=== PATIENT | female | born 1945 | race Caucasian/White ===

== ENCOUNTER 2021-07-28 21:49 | Inpatient (IN) | payer OTHER ==
[~2021-07-28] VITALS: Ht 162.6 cm; Wt 113.4 kg
--- NOTE | ~2021-07-28 | EMS ---
[address] [address] EMS Patient Care Report Name: HOMA WEST Room: PRE M.R.#: [id number] Admission: Attend Phys: Discharge: Date of : 45 Report #: [id number] THIS REPORT FOR: //name// Report Transmitted: 07/28/2021 22:34 EMS Care [place] Incident [id number] @ 07/28/2021 21:06 Incident Location [address] [place] [address] Patient HOMA WEST Female, 75 Years 1945 Patient Address [address] [place] [address] Patient History Hypertension (HTN),Hypothyroidism, unspecified,Endocrine Condition - Other,Malignant neoplasm of breast of unspecified site,Malignant neoplasm of unspecified part of unspecified bronchus or lung, Patient Allergies No known allergies, Patient Medications Levothroid, Metformin, NovoLog, Hydralazine, Verapamil, Singulair, Gabapentin, Chief Complaint Chest Pain Disposition Transported No Lights/[place] Dispatch Reason Chest Pain (Non-Traumatic) Transported To [facility] Narrative [facility] WAS DISPATCHED TO A FEMALE WITH CHEST PAIN. ON scene THE PATIENT WAS SITTING IN A RECLINER IN THE HOME. THE PATIENT WAS BEING assessed BY [address] [place] [address] EMS Patient Care Report Name: HOMA WEST Room: [facility]#: [id number] Admission: Attend Phys: Discharge: Date of : 45 Report #: [id number] FIGHTERS. THE PATIENT WAS COMPLAINING OF CHEST PAIN. THE PATIENT STATED THAT THE CHEST PAIN HAS happened ABOUT 3-4 TIMES IN THE LAST MONTH. PATIENT STATED THAT USUALLY SHE IS WALKING AROUND AND overexerting herself, HOWEVER THIS TIME THE PATIENT WAS JUST SITTING AND WATCHING HER TV. THE FIREFIGHTERS STATE THAT THE PATIENT DID HAVE A SATURATION OF 92% ON ROOM AIR. PATIENT STATED THAT SHE FEELS ALOT BETTER AFTER THE OXYGEN WAS PUT ON HER. A 12-LEAD WAS OBTAINED ALONG WITH OTHER BASE VITALS. ONCE THE PATIENT WAS DEEMED STABLE SHE WAS HELPED TO STAND, A COAT WAS OUT ON HER. THE patient PUT A PHONE IN HER POCKET AND PURSE WAS obtained. THE PATIENT STATED THAT SHE NORMALLY GO[facility] TO [facility], PATIENT WAS TOLD THAT [facility] WAS BUSY, PATIENT WAS given [facility], PATIENT CHOSE [facility]. THE PATIENT WAS WALKED OUT OF THE HOUSE AND DOWN TO THE COT. ONCE ON THE COT THE PATIENT WAS BUCKLED IN AND TAKEN TO THE AMBULANCE. IN THE AMBULANCE PATIENT VITALS WERE OBTAINED AGAIN, PATIENT HAD GOTTEN WINDED FROM WALKING, PATIENT WAS COACHED TO SLOW HER BREATHING DOWN, IV accesses ATTEMPTED AND A BLOOD GLUCOSE analyzed. LUNG sounds WERE LISTENED TO. PATIENT MEDICAL AND DEMOGRAPHIC INFORMATION WAS OBTAINED. THE PATIENT WAS ALERT AND ORIENTED. PATIENT WAS TRANSPORTED IN position OF comfort. THERE WAS NO CHANGE NOTED IN PATIENT CONDITION. PATIENT WAS SPEAKING IN FULL SENTENCES EXPLAINING HOW THIS STARTED WHILE SHE WAS WATCHING [employer]rex Gear. PATIENT WAS ABLE TO SIGN FOR HERSELF. AT THE HOSPITAL PATIENT WAS TAKEN TO ROOM 6, A NURSE WAS GIVEN patient INFORMATION. patient WAS ALLOWED TO STAND AND SIT FROM THE COT TO THE BED. THE NURSE WAS GIVEN PATIENT REPORT. NURSE SIGNED FOR PATIENT CARE. A FACESHEET WAS OBTAINED AND EMS DEPARTED THE SCENE. --END-- Initial Vitals @21:18Pain: 12/09, @21:23SpO2: 99, @21:24SpO2: 100, @21:29SpO2: 99, @21:34SpO2: 99, @21:38SpO2: 97, @21:39SpO2: 98, @21:44SpO2: 97, @CROSSCUTTER ROLLED GLASS @21:38P: 98,R: 18,BP: 179/82, @PTAP: 100,R: 20,BP: 189/90, @21:34EiAS1: 32, @21:35GnEM8: 35, @21:47JqJR0: 32, @21:74WhIX2: 30, @21:63DsKX8: 34, @21:62CoTE8: 32, @21:39WgUN3: 36, @21:38GCS: 15, @PTAGCS: 15, @21:42 [place] [address] EMS Patient Care Report Name: HOMA WEST Room: [facility]..#: [id number] Admission: Attend Phys: Discharge: Date of : 45 Report #: [id number] @21:31Glucose: 185, Assessments @21:11MENTAL:SKIN:HEENT:LUNG SOUNDS:ABDOMEN:PELVIS//GI:EXTREMITIES:PULSE:NEURO: Impression Angina pectoris Procedures @PTAOxygen Complications: , @21:30 IV Therapy - cc () Site: Antecubital-Left Response: UnchangedFailed @21:21 IV Therapy - cc () Site: Hand-Left Response: UnchangedFailed @21:23 ETCO2 digital capnography Response: UnchangedSucceeded @21:24 ETCO2 digital capnography Response: UnchangedSucceeded @21:29 ETCO2 digital capnography Response: UnchangedSucceeded @21:34 ETCO2 digital capnography Response: UnchangedSucceeded @21:38 ETCO2 digital capnography Response: UnchangedSucceeded @21:39 ETCO2 digital capnography Response: UnchangedSucceeded @21:44 ETCO2 digital capnography Response: UnchangedSucceeded @ZLN80-Dvwe ECG Response: UnchangedSucceeded Timeline CROSSCUTTER ROLLED GLASS,Oxygen Complications: ,, CROSSCUTTER ROLLED GLASS,12-Lead ECG,Response: UnchangedSucceeded, CROSSCUTTER ROLLED GLASS,BP: / M,PULSE: ,RR: R,SPO2: Ox,ETCO2: ,BG: ,PAIN: ,GCS: , CROSSCUTTER ROLLED GLASS,BP: 189/90 M,PULSE: 100,RR: 20 R,SPO2: Ox,ETCO2: ,BG: ,PAIN: ,GCS: , CROSSCUTTER ROLLED GLASS,BP: / M,PULSE: ,RR: R,SPO2: Ox,ETCO2: ,BG: ,PAIN: ,GCS: 15, 20:30,Call Received 21:03,Dispatch Notified 21:03,Psap Call 21:06,Dispatched 21:06,En Route 21:10,On Scene 21:11,At Patient 21:18,BP: / M,PULSE: ,RR: R,SPO2: Ox,ETCO2: ,BG: ,PAIN: 3,GCS: , 21:21,IV Therapy - cc Site: Hand-Left,Response: UnchangedFailed, 21:23,ETCO2 digital capnography,Response: UnchangedSucceeded, 21:23,BP: / M,PULSE: ,RR: R,SPO2: 99 Ox,ETCO2: ,BG: ,PAIN: ,GCS: , 21:23,BP: / M,PULSE: ,RR: R,SPO2: Ox,ETCO2: 32 ,BG: ,PAIN: ,GCS: , 21:24,ETCO2 digital capnography,Response: UnchangedSucceeded, 21:24,BP: / M,PULSE: ,RR: R,SPO2: 100 Ox,ETCO2: ,BG: ,PAIN: ,GCS: , 21:24,BP: / M,PULSE: ,RR: R,SPO2: Ox,ETCO2: 35 ,BG: ,PAIN: ,GCS: , 21:29,ETCO2 digital capnography,Response: UnchangedSucceeded, 21:29,BP: / M,PULSE: ,RR: R,SPO2: 99 Ox,ETCO2: ,BG: ,PAIN: ,GCS: , [place] [address] EMS Patient Care Report Name: JENNAHOMA Room: [facility].R.#: [id number] Admission: Attend Phys: Discharge: Date of : 45 Report #: [id number] 21:29,BP: / M,PULSE: ,RR: R,SPO2: Ox,ETCO2: 32 ,BG: ,PAIN: ,GCS: , 21:30,IV Therapy - cc Site: Antecubital-Left,Response: UnchangedFailed, 21:31,BP: / M,PULSE: ,RR: R,SPO2: Ox,ETCO2: ,B,PAIN: ,GCS: , 21:31,Depart Scene 21:34,ETCO2 digital capnography,Response: UnchangedSucceeded, 21:34,BP: / M,PULSE: ,RR: R,SPO2: 99 Ox,ETCO2: ,BG: ,PAIN: ,GCS: , 21:34,BP: / M,PULSE: ,RR: R,SPO2: Ox,ETCO2: 30 ,BG: ,PAIN: ,GCS: , 21:38,ETCO2 digital capnography,Response: UnchangedSucceeded, 21:38,BP: / M,PULSE: ,RR: R,SPO2: 97 Ox,ETCO2: ,BG: ,PAIN: ,GCS: , 21:38,BP: 179/82 M,PULSE: 98,RR: 18 R,SPO2: Ox,ETCO2: ,BG: ,PAIN: ,GCS: , 21:38,BP: / M,PULSE: ,RR: R,SPO2: Ox,ETCO2: 34 ,BG: ,PAIN: ,GCS: , 21:38,BP: / M,PULSE: ,RR: R,SPO2: Ox,ETCO2: ,BG: ,PAIN: ,GCS: 15, 21:39,ETCO2 digital capnography,Response: UnchangedSucceeded, 21:39,BP: / M,PULSE: ,RR: R,SPO2: 98 Ox,ETCO2: ,BG: ,PAIN: ,GCS: , 21:39,BP: / M,PULSE: ,RR: R,SPO2: Ox,ETCO2: 32 ,BG: ,PAIN: ,GCS: , 21:42,BP: / M,PULSE: ,RR: R,SPO2: Ox,ETCO2: ,BG: ,PAIN: ,GCS: , 21:44,ETCO2 digital capnography,Response: UnchangedSucceeded, 21:44,BP: / M,PULSE: ,RR: R,SPO2: 97 Ox,ETCO2: ,BG: ,PAIN: ,GCS: , 21:44,BP: / M,PULSE: ,RR: R,SPO2: Ox,ETCO2: 36 ,BG: ,PAIN: ,GCS: , 21:45,At Destination 22:00,Call Closed Disclaimer v1.1 Copyright 2020 [employer] This EMS Care Summary contains data elements from the applicable legal record (which may be displayed differently). It is designed to provide pertinent information for the following purposes: continuity of care, clinical quality, and state data reporting. The complete legal record is available to ED staff and administrators of the receiving hospital in ES's Patient Tracker. All data is provided "as is."
--- NOTE | ~2021-07-28 | EKG ---
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
[~2021-07-28 21:49] MED LIST: ASPIRIN325 PO; BUMETANIDE 1 MG1 M1 PO; COZAAR100 MG PO; GLUMETZA1000 PO; K-DUR 20 MEQ T20 MEQ PO; LANTUS SQ; LEVOTHROID50 MCG PO; NOVOLOG100 UNIT/1 SQ; PRAVACHOL40 MG PO; TOPROL XL100 MG PO; VERAPAMIL ER240 MG PO; ZOFRAN4 MG
[2021-07-28 22:03] VITALS: BP 156/63
[2021-07-28] MEDS ORDERED: TOPROL XL25 MG PO (22:08)
[2021-07-28] MEDS ORDERED: SINGULAIR4 M1 PO (22:08)
[2021-07-28] MEDS ORDERED: TRESIBA100 UNIT/1 (22:09)
[2021-07-28] MEDS ORDERED: IPRAT-ALBUT 0.5-3 ML (22:09)
[2021-07-28] MEDS ORDERED: HYDRALAZINE 2525 MG PO (22:10)
[2021-07-28 22:38] LABS: ABSOLUTE EOSINOPHILS 0.1 thou/uL (0.0-0.7); ABSOLUTE LYMPHOCYTES 1.2 thou/uL (0.8-5.3); ABSOLUTE MONOCYTES 0.8 thou/uL (0.0-1.2); ABSOLUTE NEUTROPHILS 5.2 thou/uL (1.6-8.1); BASOPHILS 0.7 %; EOSINOPHILS 1.4 %; HEMATOCRIT 39.1 % (37.0-47.0); HEMOGLOBIN 12.7 gm/dL (12.0-15.0); LYMPHOCYTES 16.2 %; MCH 28.8 pg (26.0-34.0); MCHC 32.6 g/dL (28.0-37.0); MCV 88.6 fL (80.0-100.0); MONOCYTES 10.8 %; MPV 7.1 fl. (7.2-11.1); NUCLEATED RBCS 0 /100WBC; PLATELET COUNT* 231 thou/uL (150-400); POLYS 70.9 %; RBC 4.41 mil/uL (4.20-5.00); RDW-CV 15.3 % (10.5-14.5); WBC 7.3 thou/uL (4.0-11.0)
[2021-07-28 22:45] LABS: APTT 24.8 Seconds (25.0-31.3); CALCIUM 9.2 mg/dL (8.5-10.1); CREATININE 1.3 mg/dL (0.6-1.3); POTASSIUM 4.3 mmol/L (3.5-5.1); PROTIME 10.3 Seconds (9.20-11.50)
[2021-07-28 22:53] LABS: ALBUMIN 3.1 g/dL (3.4-5.0); TOTAL BILIRUBIN 0.4 mg/dL (<0.1-1.0); TOTAL PROTEIN 7.7 g/dL (6.4-8.2)
[2021-07-29 05:04] VITALS: BP 155/65
[2021-07-29 09:00] VITALS: BP 183/93
[2021-07-29 09:31] LABS: CHOLESTEROL 134 mg/dL (<200); HDL CHOLESTEROL 61 mg/dL (>40); LDL CHOLESTEROL 44 mg/dL (<100); TC:HDL 2.2 Ratio (Not establshd); TRIGLYCERIDE 146 mg/dL (<150); VLDL 29 mg/dL (<40)
[2021-07-29 09:32] LABS: SERUM ASSESSMENT Clear
[2021-07-29 13:00] VITALS: BP 148/91
--- NOTE | 2021-07-29 14:15 | EKG ---
[place] [address] ELECTROCARDIOGRAM REPORT Name: HOMA WEST Room: [place] [address] ADM IN .R.#: [id number] Admission: 07/29/21 Attend Phys: Gina Blancas MD Discharge: Date of : 45 Date of Service: 07/28/21 215 Report #: [id number] THIS REPORT FOR: //name// [facility] ED Test Date: 2021-07-28 Test Time: 21:54:52 Pat Name: HOMA WEST Department: Room: [facility] Gender: F Gig Tender: MR : 1945 Requested By: Alicia White Order Number: [id number] MD: Scott Ruiz Measurements Intervals [place] Rate: 102 P: AK: QRS: -41 QRSD: 88 T: 47 QT: 357 QTc: 466 Interpretive Statements sinus tachycardia Left anterior fascicular block Left ventricular hypertrophy Anterior Q waves, possibly due to LVH No previous ECG available for comparison Electronically Signed On 07-29-2021 14:15:29 CDT by Scott Ruiz [email or web address] <ELECTRONICALLY SIGNED> By: Scott Ruiz MD, FACC 07/29/21 1415 53 53 Scott Ruiz MD, [facility] /EPI
--- NOTE | 2021-07-29 14:17 | EKG ---
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 : 1945 Requested By: Alicia White Order Number: [id number] MD: Scott Ruiz Measurements Intervals [place] Rate: 89 P: 19 AL: 165 QRS: -42 QRSD: 90 T: 65 QT: 372 QTc: 453 Interpretive Statements Sinus rhythm Left anterior fascicular block Consider anterior infarct Compared to ECG 07/28/2021 21:54:52 Atrial fibrillation no longer present Left ventricular hypertrophy no longer present Electronically Signed On 07-29-2021 14:17:16 CDT by Scott Ruiz [email or web address] <ELECTRONICALLY SIGNED> By: Scott Ruiz MD, FACC 07/29/21 1417 1 1 Scott Ruiz MD, FACC /EPI
--- NOTE | 2021-07-29 15:32 | 2DMMODE ---
[place] [address] 2 D/M-MODE ECHOCARDIOGRAM Name: HOMA WEST Room: [place] [address] ADM IN [facility]#: [id number] Admission: 07/29/21 Attend Phys: Gina Blancas MD Discharge: Date of : 45 Date of Service: 07/29/21 1532 Report #: [id number] THIS REPORT FOR: cc: Linh Zamorano MD, Pamela MD Liston, Michael J. MD [facility] ~ APPROVED REPORT Study performed: 07/29/2021 13:59:38 EXAM: Comprehensive 2D, Doppler, and color-flow Echocardiogram Patient Location: In-Patient Room #: er Status: routine BSA: 2.15 HR: 116 bpm BP: 148/91 mmHg Rhythm: NSR Other Information Study Quality: Adequate Indications Dyspnea 2D Dimensions IVSd: 12.49 (7-11mm) LVOT Diam: 20.84 (18-24mm) LVDd: 50.84 mm PWd: 12.56 (7-11mm) LVDs: 30.03 (25-40mm) Aortic Root: 31.35 mm Volumes Left Atrial Volume (Systole) LA ESV Index: 32.80 mL/m2 Aortic Valve AoV Peak Tam.: 1.41 m/s AO Peak Gr.: 7.97 mmHg LVOT Max P.00 mmHg AO Mean Gr.: 5.34 mmHg LVOT Mean P.64 mmHg LVOT Max V: 0.87 m/s AO V2 VTI: 22.64 cm LVOT Mean V: 0.60 m/s TORSTEN (VTI): 2.28 cm2 LVOT V1 VTI: 15.15 [place] [address] 2 D/M-MODE ECHOCARDIOGRAM Name: HOMA WEST Room: [place] [address] ADM IN .R.#: [id number] Admission: 07/29/21 Attend Phys: Gina Blancas MD Discharge: Date of : 45 Date of Service: 07/29/21 1532 Report #: [id number] Mitral Valve MV Mean Gr.: 4.79 mmHg E/A Ratio: 0.77 MV Decel. Time: 175.71 ms MV E Max Tam.: 0.95 m/s MV PHT: 50.96 ms MVA (PHT): 4.32 cm2 TDI E/Lateral E': 10.56 Lateral E' Tam.: 0.09 m/s Pulmonary Valve PV Peak Tam.: 1.13 m/s PV Peak Gr.: 5.11 mmHg Left Ventricle The left ventricle is normal size. There is akinesis of the apex and apical anterior wall. Mild concentric left ventricular hypertrophy. Left ventricular systolic function is preserved. LVEF is 55%. Grade I - abnormal relaxation pattern. Right Ventricle The right ventricle is normal size. The right ventricular systolic function is normal. Atria The left atrium size is normal. The right atrium size is normal. Aortic Valve Mild aortic valve sclerosis. No aortic regurgitation is present. There is no aortic valvular stenosis. Mitral Valve There is mitral annular calcification. There is no mitral valve regurgitation noted. No evidence of mitral valve stenosis. Tricuspid Valve The tricuspid valve is normal in structure. Trace tricuspid regurgitation. Unable to assess PA pressure. Pulmonic Valve The pulmonary valve is normal in structure. There is no pulmonic valvular regurgitation. Great Vessels The aortic root is normal in size. IVC [place] [address] 2 D/M-MODE ECHOCARDIOGRAM Name: HOMA WEST MARSHA Room: [address] IN [facility]#: [id number] Admission: 07/29/21 Attend Phys: Gina Blancas MD Discharge: Date of : 45 Date of Service: 07/29/21 1532 Report #: [id number] collapses >50% with inspiration. Pericardium There is no pericardial effusion. <Conclusion> The left ventricle is normal size. Mild concentric left ventricular hypertrophy. Left ventricular systolic function is preserved. LVEF is 55%. Grade I - abnormal relaxation pattern. There is akinesis of the apex and apical anterior wall. Mild aortic valve sclerosis. There is mitral annular calcification. Trace tricuspid regurgitation. <ELECTRONICALLY SIGNED> By: Bradley Salvador MD, FACC 07/29/211531 31 31 Bradley Salvador MD, FACC /INF
[2021-07-29 16:45] VITALS: BP 162/92
[2021-07-29 16:55] VITALS: BP 165/78
[2021-07-29 21:20] VITALS: BP 163/115
[2021-07-30] VITALS (12 sets, daily range): BP systolic 115–167; BP diastolic 55–81
[2021-07-30 02:52] LABS: ABSOLUTE MONOCYTES 1.1 thou/uL (0.0-1.2); ABSOLUTE NEUTROPHILS 5.9 thou/uL (1.6-8.1); BASOPHILS 0.5 %; EOSINOPHILS 0.3 %; HEMATOCRIT 41.6 % (37.0-47.0); HEMOGLOBIN 13.7 gm/dL (12.0-15.0); LYMPHOCYTES 12.9 %; MCV 87.8 fL (80.0-100.0); MONOCYTES 13.8 %; MPV 7.4 fl. (7.2-11.1); NUCLEATED RBCS 0 /100WBC; PLATELET COUNT* 252 thou/uL (150-400); POLYS 72.5 %; RBC 4.74 mil/uL (4.20-5.00); RDW-CV 15.4 % (10.5-14.5); WBC 8.1 thou/uL (4.0-11.0)
[2021-07-30 03:23] LABS: ALBUMIN 3.4 g/dL (3.4-5.0); CALCIUM 9.5 mg/dL (8.5-10.1); CREATININE 1.3 mg/dL (0.6-1.3); MAGNESIUM 1.5 mg/dL (1.8-2.4); PHOSPHORUS* 3.7 mg/dL (2.5-4.9); POTASSIUM 4.4 mmol/L (3.5-5.1); TOTAL BILIRUBIN 0.8 mg/dL (<0.1-1.0); TOTAL PROTEIN 7.7 g/dL (6.4-8.2)
--- NOTE | 2021-07-30 14:46 | EKG ---
[place] [address] ELECTROCARDIOGRAM REPORT Name: HOMA WEST Room: [address] ADM IN M.R.#: [id number] Admission: 07/29/21 Attend Phys: Gina Blancas MD Discharge: Date of : 45 Date of Service: 07/30/21 1258 Report #: [id number] THIS REPORT FOR: //name// [facility] Test Date: 2021-07-30 Test Time: 12:58:40 Pat Name: HOMA WEST Department: Room: [address] Gender: F Data Control Assistant: : 1945 Requested By: Scott Ruiz Order Number: [id number] MD: Scott Ruiz Measurements Intervals [place] Rate: 98 P: 54 WV: 189 QRS: -46 QRSD: 91 T: 68 QT: 360 QTc: 460 Interpretive Statements Sinus rhythm Left anterior fascicular block Abnormal R-wave progression, late transition Compared to ECG 07/29/2021 01:02:19 no change Electronically Signed On 07-30-2021 14:46:02 CDT by Scott Ruiz [email or web address] <ELECTRONICALLY SIGNED> By: Scott Ruiz MD, FAC 07/30/21 1446 1258 1258 Scott Ruiz MD, [facility] /EPI
--- NOTE | 2021-07-30 16:57 | CARD ---
[address] [address] CARDIAC CATH REPORT Name: HOMA WEST Room: [address] IN [facility]#: [id number] Admission: 07/29/21 Attend Phys: Gina Blancas MD Discharge: Date of : 45 Report #: [id number] THIS REPORT FOR: cc: Linh Zamorano MD, Pamela MD Blick, David R. MD [facility] ~ APPROVED REPORT Study performed: 07/30/2021 10:56:35 Patient Details Patient Status: In-Patient Room #: The patient is a 75 year-old female Event Personnel Scott Ruiz Tank Truck Driver, Bindu Astorga RN Rigger Up, Carlos Alberto Conklin RTR Scrub, Zena Butler RTR Monitor Procedures Performed Art Access - R radial artery Left Heart Cath w/or w/o Coronaries LHC SOLA Place w/wo Plasty Single LAD Hemostasis with Hemoband Indication Non-STEMI , Chest pain Risk Factors Hypercholesterolemia, Hypertension, Diabetes Admission/Lab Medications/Medications given during procedure Glycoprotein IllbIlla Inhibitors, Heparin Unfract., Plavix PO 600 mg, Nitroglycerin IC 200 mcg, Aggrastat IV 11 ml, Heparin IV 2000 units, Heparin IV 5000 units, Verapamil IA 2.5 mg, Nitroglycerin IA 200 mcg, Magnesium Sulfate IV 2 g, Lidocaine Subcut 4 ml, 0.9% Sodium Chloride IV 75 ml per hr, Oxygen Nasal cannula 2 l per min Procedure Narrative The patient was brought electively to the Cardiac Catheterization Laboratory and was prepped and draped in a sterile manner. The right wrist was infiltrated with 2% Lidocaine subcutaneous anesthesia. IV conscious sedation was used throughout procedure with appropriate monitoring and was performed in the presence [place] [address] CARDIAC CATH REPORT Name: HOMA WEST MARSHA Room: [address] IN [facility]#: [id number] Admission: 07/29/21 Attend Phys: Gina Blancas MD Discharge: Date of : 45 Report #: [id number] who was an independent trained observer other than the physician performing the procedure. A Slender Glidesheath sheath was inserted into the right radial artery. Coronary angiography was performed using coronary diagnostic catheters. The right coronary system was accessed and visualized with a Diagnostic 6F JR4 catheter. The left coronary system was accessed and visualized with a Diagnostic 6FJL4 catheter. The left ventricle was accessed and visualized with a Diagnostic PIGTAIL catheter. Left ventricular/Aortic Valve gradient assessed via catheter pullback. Left ventriculogram was performed in BOBO projection. Closure device was deployed with a 6 Fr Vasc-Band Reg 24cm. The patient tolerated the procedure well and there were no complications associated with the procedure. There was no hematoma. Intraoperative Conscious Sedation Sedation start time: 11:34 Case end Time: 12:34 Versed 1 mg Fluoro Time: 14.3 minutes Dose: DAP 346499 cGycm2 3163 mGy Contrast Type and Amount: Visipaque 240 mL Coronary Angiography The patient's coronary anatomy is right dominant. Diagnostic Cath Left Main Heavily calcified vessels with a proximal 30% stenosis LAD 95% proximal stenosis, and a 99% stenosis just after the takeoff of the second diagonal artery. There was competitve flow noted with miminal antegrade flow, and the mid and distal LAD filled retrograde by collaterals from the RCA. Circumflex 60% mid stenosis Right Coronary 30$ proximal stenosis and 40% mid stenosis with retrograde collaterals filling the distal and mid LAD. Left Ventriculography The left ventricular ejection fraction is estimated to be 30-35%. Left ventricular wall motion abnormalities are present. There is 1+ mitral insufficiency. severe hypokinesis noted of the mid and distal anteroapical wall. Hemodynamics The aortic pressure is 131/58 mmHg with a mean of [place] [address] CARDIAC CATH REPORT Name: HOMA WEST Room: [address] IN [facility]#: [id number] Admission: 07/29/21 Attend Phys: Gina Blancas MD Discharge: Date of : 45 Report #: [id number] ventricular pressure is 135/10 mmHg with a mean of mmHg. The left ventricular end diastolic pressure is 20 mmHg. There was no gradient across the aortic valve upon pullback. Pullback from the left ventricle to the aorta revealed no gradient across the aortic valve. PCI Technique Lesion Anticoagulation was achieved with Heparin. bolus of IV aggrastat given Percutaneous coronary intervention was performed on the proximal left anterior descending artery segment. The lesion stenosis prior to intervention was 95% with KALEB 3 flow. A 6FR XB LAD 3.0 100CM Guide Catheter was used to engage the LEFT ostium. A IG: BMW 190cm Interventional Guidewire was used to cross the lesion. BALLOON DILATION A Balloon catheter EUPHORA 2.5 X 15 was inserted and inflated up to 10atm for 13seconds. Repeat angiography revealed the following post-dilatation results: 80% stenosis. Additional Inflation: 11atm for 16seconds. Additional Inflation: 13atm for 16seconds. STENT DEPLOYMENT A drug-eluting stent Rich RX Stent 3.5X15mm was inserted and inflated up to 12atm for 18seconds. Repeat angiography revealed the following post-stent deployment results: 30% stenosis. POST STENT DEPLOYMENT BALLOON DILATION A Balloon catheter Euphora SC 4.0x12mm was inserted and inflated up to 18atm for 20seconds. Repeat angiography revealed the following post-dilatation results: 30% stenosis. Additional Inflation: 20atm for 8seconds. Unable to inset noncompliant balloon into the LAD despite using a BMW micah wire for support. Was able to insert a complaint balloon into the LAD. Difficulty appearred to be secondary to moderate coronary calcification. Final angiography reveals 30 % stenosis with KALEB 3 flow. PCI Technique Lesion 2 Percutaneous Coronary Intervention was performed on the mid left anterior descending artery segment. Percutaneous coronary intervention was performed on the mid left anterior descending artery segment. The lesion stenosis prior to intervention was 99% with KALEB 0 flow. A 6FR XB LAD 3.0 100CM Guide Catheter was used to engage the left ostium. A IG: BMW 190cm Interventional Guidewire was used [place] [address] CARDIAC CATH REPORT Name: HOMA WEST Room: [address] IN [facility]#: [id number] Admission: 07/29/21 Attend Phys: Gina Blancas MD Discharge: Date of : 45 Report #: [id number] Balloon Dilation A Balloon catheter EUPHORA 2.5 X 15 MM was inserted and inflated up to 14atm for 6seconds. Repeat angiography revealed the following post-dilatation results: 70% stenosis. Stent Deployment A drug-eluting stent Rich RX Stent 3.0X15mm was inserted and inflated up to 12atm for 19seconds. Repeat angiography revealed the following post-stent deployment results: 0% stenosis. Final angiography reveals 0 % stenosis with KALEB 3 flow. Conclusion 1. 95% proximal and 99% mid stenosis of a moderately calcified LAD with no significant antegrade flow and the mid and distal LAD filled retrograde by collaterals from the RCA. 2. LVEF 30-35% 3. successful placement of drug eluting stents in the proximal and mid LAD. Recommendations Cardiac Rehabilitation Referral Aggressive Medical Therapy Medications Administered Clopidogrel <ELECTRONICALLY SIGNED> By: Scott Ruiz MD, FACC 07/30/211655 55 55Scott Ruiz MD, FACC /INF
[2021-07-31] VITALS: BP 105/60
[2021-07-31 04:07] LABS: HEMATOCRIT 34.6 % (37.0-47.0); MCH 29.2 pg (26.0-34.0); MCHC 33.3 g/dL (28.0-37.0); MCV 87.7 fL (80.0-100.0); MPV 7.5 fl. (7.2-11.1); RBC 3.95 mil/uL (4.20-5.00); RDW-CV 15.4 % (10.5-14.5); WBC 6.3 thou/uL (4.0-11.0)
[2021-07-31 04:19] LABS: HEMOGLOBIN 11.5 gm/dL (12.0-15.0)
[2021-07-31 04:27] LABS: CALCIUM 8.3 mg/dL (8.5-10.1); CREATININE 1.2 mg/dL (0.6-1.3)
[2021-07-31 04:50] VITALS: BP 138/66
--- NOTE | 2021-07-31 09:48 | CON ---
[address] [address] CONSULTATION Name: [facility] Room: [address] IN .R.#: [id number] Admission: 07/29/21 Attend Phys: Gina Blancas MD Discharge: Date of : 45 Report #: [id number] THIS REPORT FOR: cc: Linh Zamorano MD,Linh Salvador,Bradley Mccray MD FAC ~ cc: Linh Zamorano MD, DATE OF CONSULTATION: 07/29/2021 INDICATION: Non-ST elevation myocardial infarction and acute heart failure. HISTORY OF PRESENT ILLNESS: The patient is a 75-year-old white female who presents to the Emergency Room with intermittent exertional chest discomfort and progressive shortness of breath. She reports a history of asthma. Cardiac risk factors include hypertension, type 2 diabetes mellitus, possible hyperlipidemia. The patient reports over the past several months having exertional central chest tightness and pressure consistent with angina. There is no specific radiation of the discomfort. Last evening, she had the onset of the shortness of breath and orthopnea. The patient reports intermittent chest heaviness that is dull since that time. She was started on a heparin drip here in the Emergency Room. Her high sensitivity troponins have ultimately elevated to the level of approximately 7000 consistent with a non-ST elevation myocardial infarction. EKG shows sinus rhythm without acute ST segment abnormality. Chest x-ray shows cardiomegaly and pulmonary vascular congestion. PAST MEDICAL HISTORY: 1. Type 2 diabetes mellitus. 2. Hypertension. 3. Asthma. 4. History of deep venous thrombosis remotely. 5. Stasis ulcers with chronic venous stasis of the lower extremities. 6. Thoracic aortic aneurysm. 7. Right mastectomy. ALLERGIES: TALWIN. CURRENT MEDICATIONS: Aspirin 325 mg daily, verapamil ER 1 tablet daily, metoprolol succinate 100 mg daily, pravastatin 40 mg at bedtime, metformin one tablet b.i.d., Synthroid 1 tablet daily, insulin 16 units subQ t.i.d., Toprol-XL 25 mg daily, Singulair 4 mg daily, Combivent inhaler p.r.n., Tresiba 100 units at bedtime, hydralazine 25 mg q.i.d. FAMILY HISTORY: [place] [address] CONSULTATION Name: HOMA WEST Room: [address]#: [id number] Admission: 07/29/21 Attend Phys: Gina Blancas MD Discharge: Date of : 45 Report #: [id number] SOCIAL HISTORY: The patient lives at home. She is not a smoker. She does not drink alcohol. REVIEW OF SYSTEMS: A 14-point review of systems as per HPI, otherwise unremarkable. PHYSICAL EXAMINATION: VITAL SIGNS: Blood pressure is 148/72, pulse is 102 and regular. GENERAL: This is a pleasant lady who appears to be in mild respiratory distress. HEENT: The patient is wearing glasses. O2 nasal cannula in place. Extraocular muscles intact. NECK: Examination of the neck reveals thick neck without obvious jugular venous distension. CHEST: Reveals diffuse rales throughout. CARDIAC: Reveals a distant S1, S2. I do not appreciate gallop or murmur. ABDOMEN: Reveals a protuberant abdomen that is soft and nontender. Bowel sounds present. EXTREMITIES: Show left lower extremity to be wrapped. Right lower extremity has mild edema. IMAGING: Chest x-ray shows cardiomegaly and pulmonary vascular congestion and acute heart failure, likely. LABORATORY DATA: Labs are reviewed. Electrolytes are within normal limits. BUN 24, creatinine 1.3, serum glucose 207. LFTs within normal limits. High sensitivity troponin peaked at 7291 thus far. NT-proBNP 749. CBC is within normal limits. IMPRESSION AND RECOMMENDATIONS: 1. Non-ST elevation myocardial infarction. The patient has been given an aspirin. She is on a heparin drip per Cardiology protocol. She is on O2 per nasal cannula. Her symptoms are improved at present with the exception of shortness of breath. Plan noninvasive evaluation either today or tomorrow. 2. Acute heart failure. The patient is in mild distress at this time. We will give IV bolus Lasix. We will reassess later today. Echocardiogram ordered and pending. 3. Hypertension. We will follow blood pressures with diuresis should improve her blood pressure. We will continue home [place] [address] CONSULTATION Name: HOMA WEST MARSHA Room: [address] [place] [facility]#: [id number] Admission: 07/29/21 Attend Phys: Gina Blancas MD Discharge: Date of : 45 Report #: [id number] 4. Possible dyslipidemia. A fasting lipid profile ordered and pending. 5. Diabetes per hospitalist. <ELECTRONICALLY SIGNED> By: Bradley Salvador MD, FACC 07/31/21 0948 [id number] Salvador MD, PIA /nt
[2021-07-31 11:30] VITALS: BP 139/65
[2021-07-31 16:00] VITALS: BP 130/66
[2021-07-31 19:57] VITALS: BP 125/52
[2021-08-01 00:27] VITALS: BP 119/58
[2021-08-01 04:18] VITALS: BP 121/53
[2021-08-01 08:00] VITALS: BP 123/55
[2021-08-01] MEDS ORDERED: TOPROL XL100 MG PO (09:16)
[2021-08-01] MEDS ORDERED: PLAVIX 75 MG TA75 M1 PO (09:16)
[2021-08-01 10:26] LABS: ABSOLUTE BASOPHILS 0.1 thou/uL (0.0-0.2); ABSOLUTE EOSINOPHILS 0.2 thou/uL (0.0-0.7); ABSOLUTE MONOCYTES 0.8 thou/uL (0.0-1.2); ABSOLUTE NEUTROPHILS 4.5 thou/uL (1.6-8.1); BASOPHILS 0.9 %; EOSINOPHILS 2.8 %; HEMOGLOBIN 11.5 gm/dL (12.0-15.0); LYMPHOCYTES 14.8 %; MCH 29.1 pg (26.0-34.0); MCHC 32.8 g/dL (28.0-37.0); MCV 88.7 fL (80.0-100.0); MONOCYTES 12.9 %; MPV 7.6 fl. (7.2-11.1); NUCLEATED RBCS 0 /100WBC; PLATELET COUNT* 216 thou/uL (150-400); POLYS 68.6 %; RBC 3.95 mil/uL (4.20-5.00); RDW-CV 15.4 % (10.5-14.5); WBC 6.5 thou/uL (4.0-11.0)
[2021-08-01 10:50] LABS: CALCIUM 8.4 mg/dL (8.5-10.1); CREATININE 1.3 mg/dL (0.6-1.3); POTASSIUM 4.5 mmol/L (3.5-5.1)
[2021-08-01] MEDS ORDERED: LIPITOR 40 MG T40 M1 PO (11:37)
[2021-08-01] MEDS ORDERED: BAYER CHEWABLE81 MG PO (11:39)
[2021-08-01 12:00] VITALS: BP 138/62
[2021-08-01 14:56] VITALS: BP 138/62
== END 2021-08-01 15:30 | disposition home or self-care (01) | DRG 246 ==
LOC: M.ERS 21:49 → M.TBA-ER 07-29 01:08 → M.ORTHSURG 07-29 16:55
PROVIDERS: Internal Medicine; Internal Medicine Cardiovascular Disease; Personal Emergency Response Attendant; ADMIT Family Medicine; ATTEND Family Medicine
DX: I21.4 Non-ST elevation (NSTEMI) myocardial infarction (principal); I50.33 Acute on chronic diastolic (congestive) heart failure; E11.9 Type 2 diabetes mellitus without complications; I87.8 Other specified disorders of veins; J45.909 Unspecified asthma, uncomplicated; E03.9 Hypothyroidism, unspecified; I11.0 Hypertensive heart disease with heart failure; Z20.822 Contact with and (suspected) exposure to COVID-19; Z23 Encounter for immunization; Z90.11 Acquired absence of right breast and nipple; Z86.718 Personal history of other venous thrombosis and embolism; Z88.8 Allergy status to other drugs, medicaments and biological substances; Z79.82 Long term (current) use of aspirin; Z79.899 Other long term (current) drug therapy